=== PATIENT | female | born 1945 | race Caucasian/White ===

== ENCOUNTER → 2018-05-18 | Outpatient (CLI) | payer MEDICARE ==
--- NOTE | 2018-05-18 16:52 | BD ---
EXAMINATION TYPE: Axial Bone Density DATE OF EXAM: 05/18/2018 COMPARISON: NONE CLINICAL HISTORY: 72 YR OLD FEMALE.....ICD-10 CODE: Z13.820 SCREENING FOR OSTEOPOROSIS Height: 65 Weight: 167 FRAX RISK QUESTIONS: NOTHING ADDITIONAL TO ADD HERE RISK FACTORS HISTORY OF: Surgery to Spine YES, LAMINECTOMY TO L4 AND L5 When: 1994 Active: YES Diet low in dairy products/other sources of calcium: NO Postmenopausal woman: YES, AT AGE 54, WITH CHEMO, FOR BR CA MEDICATIONS: Additional Medications: HX OF CHEMO AND RADIATION (BR CA), PAXIL, STATIN FOR CHOLESTEROL, VIT D Additional History: BILAT BREAST CANCER, BILAT MASTECTOMY EXAM MEASUREMENTS: Bone mineral densitometry was performed using the [employer]. Bone mineral density about the R hip (g/cm2): 1.011 Bone mineral density about the L hip (g/cm2): 0.935 T Score values are as follows: -----R Neck: -1.0 -----L Neck: -1.0 -----R Total: 0.0 -----L Total: -0.6 Bone mineral density FIRST BONE DENSITY AT MPH Bone mineral density about the L Wrist (g/cm2): 0.544 T Score values are as follows: -----Dist. R+U: -2.0 -----Prox. R+U: -0.9 -----Radius total: -1.6 Bone mineral density FIRST BONE DENSITY AT MPH FRAX%s: THERE IS A 8.9% CHANCE FOR A MAJOR OSTEOPOROTIC FX AND A 1.0% FOR HIP FX.....PROBABILITY O F FX IN 10 YRS TIME IMPRESSION: Normal (Values between +1 and -1 indicate normal bone mass). However, note that measurements border o n osteopenia in both hips and in the left wrist. Consider repeating this study in 5 years or sooner if there is some new clinical indication. NOTE: T-SCORE=SD OF THE YOUNG ADULT MEAN.
== END | disposition home or self-care (01) ==
LOC: RADBDWWP 09:08
PROVIDERS: ATTEND Family Medicine
DX: Z13.820 Encounter for screening for osteoporosis (principal)
CPT/HCPCS: 77080

== ENCOUNTER → 2018-09-07 | Outpatient (CLI) | payer MEDICARE ==
--- NOTE | 2018-09-07 09:58 | US ---
EXAMINATION TYPE: US abdomen complete DATE OF EXAM: 09/07/2018 COMPARISON: NONE CLINICAL HISTORY: R10.84 abdominal pain. RUQ & LUQ pain EXAM MEASUREMENTS: Liver Length: 14.3 cm Gallbladder Wall: 0.3 cm CBD: 0.4 cm Spleen: 7.7 cm Right Kidney: 11.9 x 6.4 x 5.6 cm Left Kidney: 11.4 x 5.4 x 5.7 cm Technically difficult due to midline bowel gas. Pancreas: visualized portions wnl Liver: wnl Gallbladder: No stones seen Evidence for sonographic Crespo's sign: No CBD: wnl Spleen: wnl Right Kidney: difficult to image due to bowel gas. Lobulated contour. Left Kidney: difficult to image due to bowel gas . Lobulated contour. Upper IVC: wnl Abd Aorta: wnl The liver is homogenous. The intrahepatic portion of the IVC and proximal abdominal aorta are within normal limits. There is no evidence of cholelithiasis. Common bile duct is unremarkable. The visu alized portions of the pancreas are homogenous. The spleen is unremarkable. Kidneys are symmetric a nd free of hydronephrosis. No definitive renal lesions are seen. IMPRESSION: 1. No sonographic evidence of cholelithiasis or acute cholecystitis. Visualized liver appears homogen eous. 2. Poor visualization of the kidneys although there is a lobulated contour demonstrated.
== END | disposition home or self-care (01) ==
LOC: RADUSWWP 08:34
PROVIDERS: ATTEND Family Medicine
DX: R10.84 Generalized abdominal pain (principal)
CPT/HCPCS: 76700